=== PATIENT | female | born 1985 | race Caucasian/White ===

== ENCOUNTER 2019-10-26 08:57 | Observation (INO) | payer MEDICAID, OTHER | END 2019-10-26 09:37 | disposition home or self-care (01) | LOC: 8 EST LDRP 08:57 | PROVIDERS: ADMIT Obstetrics & Gynecology; ATTEND Obstetrics & Gynecology | DX: Z34.90 Encounter for supervision of normal pregnancy, unspecified, unspecified trimester (principal); Z3A.00 Weeks of gestation of pregnancy not specified | CPT/HCPCS: G0378 ==